=== PATIENT | male | born 1970 | race African-American/Black ===

== ENCOUNTER 2018-08-27 15:16 | Observation (INO) ==
[2018-08-27] MEDS ORDERED: NS 1,000 ML IV ONE (15:29)
--- NOTE | 2018-08-27 15:46 | PROVIDER DOCUMENTATION ---
HPI-General Adult - General Chief Complaint: Stroke-Like Symptoms Stated Complaint: STROKE LIKE SX Time Seen by Provider: 08/27/18 15:27 Source: patient, family Allergies/Adverse Reactions: Patient Allergies Allergy/AdvReac Type Severity Reaction Status Date / Time lisinopril Allergy angioedema Verified 08/27/18 15:24 Home Medications: Home Medication List Medication Instructions Recorded Confirmed Last Taken Type Bupropion HCl [Wellbutrin Xl] 150 mg PO QHS 10/03/17 08/27/18 10/02/17 History Bupropion HCl [Wellbutrin Xl] 300 mg PO QAM 10/03/17 08/27/18 10/03/17 06:30 History Oxcarbazepine 1,200 mg PO QAM 10/03/17 08/27/18 10/03/17 06:00 History Oxcarbazepine 600 mg PO QHS 10/03/17 08/27/18 10/02/17 History Nebivolol HCl [Bystolic] 10 mg PO DAILY 05/15/18 08/27/18 Unknown History Aspirin 325 mg PO DAILY #90 tab 05/16/18 08/27/18 Unknown Rx Atorvastatin Calcium [Lipitor] 20 mg PO 08/27/18 Unknown History Clonidine [Catapres] 0.1 mg PO 4XDAY 08/27/18 08/27/18 Unknown History Losartan Potassium 1 cap PO DAILY 08/27/18 08/27/18 Unknown History Spironolactone 1 tab PO DAILY 08/27/18 08/27/18 Unknown History - History of Present Illness -Gen Adult Nature of Presenting Problems: Mr. Pfeiffer presents complaining of slurred speech, word finding difficulties that started one hour patrol [employer]. He feels like symptoms are improving. He has had same symptoms several times before and reports that they always resolve. He usually takes a clonidine when this happens. He tells that he has seen neurology and cards but has been given no answers. He was seen here in May 2018 for similar symptoms. MRI/MRA NAF. Location of Pain/Injury: reports: none Pain Radiation: reports: no radiation Quality of Pain: reports: none Severity: reports: mild Onset/Duration: reports: 1 hour ago Timing: reports: still present Context/Activities at Onset: reports: none Modifying Factors: improves with: nothing Associated Symptoms: denies: anxiety, chest pain, cough, diarrhea, dizziness, fatigue, headaches, sinus congestion/drainage, shortness of breath, syncope, vomiting, trouble walking Similar Symptoms Previously?: Yes Recently seen or treated by another doctor?: No Review of Systems - Adult - REVIEW OF SYSTEMS - ADULT Constitutional: reports: no symptoms reported Eyes: reports: no symptoms reported. denies: blurred vision Ears, Nose, Mouth & Throat: reports: no symptoms reported Cardiovascular: reports: no symptoms reported. denies: chest pain, syncope Respiratory: reports: no symptoms reported. denies: cough, shortness of breath Gastrointestinal: reports: no symptoms reported. denies: abdominal pain Genitourinary: reports: no symptoms reported Musculoskeletal: reports: no symptoms reported Integumentary: reports: no symptoms reported. denies: rash Neurological: reports: see HPI. denies: dizziness/vertigo, headache/migraines, numbness, paresthesia Psychiatric: reports: no symptoms reported. denies: suicidal thoughts Endocrine: reports: no symptoms reported Hematologic/Lymphatic: reports: no symptoms reported Allergic/Immunologic: reports: no symptoms reported All Other Systems: Reviewed and Negative Past History - Adult - PAST MEDICAL HISTORY-ADULT Review of Records: reports: Old Records Reviewed, Nursing Assessment Review, Medications Reviewed, Social history reviewed & non-contributory. Major Childhood Illnesses: reports: denies history Cardiovascular: reports: HTN Respiratory: reports: denies history Gastrointestinal: reports: denies history Obstetrical/Gynecological: reports: denies history Genitourinary: reports: denies history Musculoskeletal: reports: denies history Neurological: reports: denies history Endocrine/Immune: reports: Diabetes Other Conditions: reports: denies history - PRIOR SURGERIES/PROCEDURES Surgical/Procedure History: reports: reviewed, not pertinent - IMMUNIZATION STATUS Childhood Immunizations: See Nurse Assessment Flu Vaccine: See Nurse Assessment - FAMILY HISTORY Family History: reviewed, not pertinent - SOCIAL HISTORY Smoking: denies Substance Use: none/never Alcohol Use Frequency: never Living Situation: family Physical Exam-General - PHYSICAL EXAM-ADULT Initial Vital Signs Reviewed: Yes - CONSTITUTIONAL General Appearance: appears well, alert, no apparent distress - EYES Eyes: PERRL/EOMI, pink conjunctivae. negative: anisocoria - HEAD, EARS, NOSE, MOUTH & THROAT HENMT: normocephalic/atraumatic, pharynx normal - NECK Neck: supple - RESPIRATORY Respiratory: lungs clear, normal breath sounds - CARDIOVASCULAR Cardiovascular: normal peripheral pulses, regular rate, rhythm - MUSCULOSKELETAL Extremity: normal gait - SKIN Integumentary: normal color, normal turgor, warm/dry - NEUROLOGIC Neurologic: housemaid II-XII nml as tested, grossly normal, no motor/sensory deficits , aphasia (mild; mild dysarthria). negative: abnormal gait - PSYCHIATRIC Psych/Mental Status: normal thought content, oriented x 3 Progress - PLAN OF CARE/RESULTS Progress/Plan/Lab Results: Vital Signs - 8 hr 08/27/18 15:20 Temperature 97.5 F L Pulse Rate 72 Respiratory Rate 18 Blood Pressure 153/88 O2 Sat by Pulse Oximetry 96 Orders Category Date Time Status Cardiac Monitoring DIRECTED Care 08/27/18 15:28 Active Cardiac Monitoring DIRECTED Care 08/27/18 15:30 Active Nursing- Obtain EKG once Care 08/27/18 15:26 Active Oxygen Therapy- ED Nursing DIRECTED Care 08/27/18 15:30 Active Saline Loc NOW Care 08/27/18 15:30 Active CHEST-1 VIEW [RAD] Stat Exams 08/27/18 15:[address] HEAD W/O CONTRAST [CT] Stat Exams 08/27/18 15:25 Ordered ALCOHOL BLOOD Stat Lab 08/27/18 15:29 Uncollected CBC WITH ELECTRONIC DIFF [HEME] Stat Lab 08/27/18 15:30 Uncollected CK PROFILE [SP CHEM] Stat Lab 08/27/18 15:30 Uncollected COMPREHENSIVE METABOLIC PANEL [CHEM] Stat Lab 08/27/18 15:30 Uncollected PROTIME WITH INR [COAG] Stat Lab 08/27/18 15:30 Uncollected PTT [COAG] Stat Lab 08/27/18 15:30 Uncollected TROPONIN T Stat Lab 08/27/18 15:30 Uncollected UA NIMS W/REFLEX CULT PL [URINALYSIS] Stat Lab 08/27/18 15:29 Uncollected URINE DRUG SCREEN PL Stat Lab 08/27/18 15:29 Uncollected 0.9% Sodium Chloride Inj [Ns] 1,000 ml Med 08/27/18 15:29 Active IV 999 mls/hr CP/SOB/Palp >45 yrs of Age Stat Oth 08/27/18 15:29 Ordered EKG [EKG] Stat Ther 08/27/18 15:30 Ordered Result Diagrams: 08/27/18 16:20 08/27/18 16:20 - REASSESSMENT Reassessment #1 Time Reassessed: 16:10 Status: improving (Patient seen and examined by Dr. Paul.) Reassessment #2 Time Reassessed: 16:50 Status: improving (speech improving.) - CONSULTS/PCP/HOSPITALIST Notification #1 *Consult/PCP/Hospitalist*: Dr. Vieyra Time Discussed: 17:32 Consult Disposition: other (CTA head/neck, admit here at [facility], mri tomorrow.) #2 Consult: Dr. White Time Discussed: 17:36 Consult Disposition: Admit Departure - Departure Date of Disposition Decision: 08/27/18 Time of Disposition Decision: 17:32 DIAGNOSIS: Dysarthria, Aphasia, Renal insufficiency Disposition: ADMITTED INPATIENT 09 Certified Medical Emergency: Emergent Condition: Stable Referrals and Follow-Ups: None,PCP [Primary Care Provider] - - Critical Care Note This patient required my direct & personal management of CC.: No Attestation - Physician/ ROGER Attestation Patient care was provided by Advanced Practice Provider:: Yes Advanced Practice Provider:: Jann Gamboa Advanced Practice Provider documentation review:: The Mid-level provider documentation, treatment plan and medical decision making was reviewed by the physician who agrees with all treatment and medical decision making by the MLP. The physician spent face to face time with patient:: Yes Advanced Practice Provider documentation review:: Supervising physician onsite and consulted in the evaluation and care of this patient. The physician did have a face to face encounter with the patient.
--- NOTE | 2018-08-27 15:47 | ED EKG INTERP ---
This chart was entered by Lima Rogers Scribe, acting as scribe for Mary Paul MD. EKG Interpretation - EKG Time of EKG reading by physician:: 15:28 EKG Read and Signed by:: Mary Paul EKG Interpretation (*Must complete 3 of following elements*): Normal Rate: 74 Rhythm: nsr [place]: normal QRS: normal [place] Interval: normal ST Wave: normal Prior EKG Comparison: no prior EKG Attestation - Physician/ ROGER Attestation Patient care was provided by Advanced Practice Provider:: Yes Advanced Practice Provider documentation review:: The Mid-level provider documentation, treatment plan and medical decision making was reviewed by the physician who agrees with all treatment and medical decision making by the MLP. The physician spent face to face time with patient:: No Advanced Practice Provider documentation review:: Supervising physician onsite and consulted in the evaluation and care of this patient. The physician did not have a face to face encounter with the patient. This chart was documented by the indicated scribe, (Lima Rogers Scribe) and accurately reflects the services I performed and decisions made by me, Mary Paul MD, as attested by the provider's signature.
--- NOTE | 2018-08-27 16:08 | EKG Report ---
Test Performed on : 08/27/2018 3:28:22 PM Test Reason : ams Blood Pressure : / mmHG Vent. Rate : 074 BPM Atrial Rate : 074 BPM P-R Int : 128 ms QRS Dur : 096 ms QT Int : 402 ms P-R-T Axes : 054 075 033 degrees QTc Int : 446 ms Normal sinus rhythm. Normal ECG When compared with ECG of 03-OCT-2017 12:51, No significant change was found Unconfirmed Result
--- NOTE | 2018-08-27 16:26 | Diag Imaging Result Doc PS360 ---
EXAM: CT HEAD W/O CONTRAST - 08/27/2018 HISTORY: Stroke Symptoms TECHNIQUE: CT head without contrast COMPARISON: 05/15/2018 FINDINGS: There is no evidence of intracranial hemorrhage, mass effect, midline shift, or hydrocephalus. There is stable slight ventricular asymmetry compatible normal variation. There is no evidence of infarct, although acute infarcts may not be immediately visible. There is no evidence of skull fracture. Visualized portions of paranasal sinuses and mastoid air cells appear clear. IMPRESSION: No visible acute intracranial abnormality. No hemorrhage or mass effect. This exam was performed using automated exposure control, adjustment of mA or kV according to patient size, and/or use of iterative reconstruction technique. Electronically signed by Rajinder Wayne 08/27/2018 4:24 PM
--- NOTE | 2018-08-27 16:29 | Diag Imaging Result Doc PS360 ---
EXAM: CHEST-1 VIEW - 08/27/2018 HISTORY: ams TECHNIQUE: One view chest COMPARISON: 10/03/2017 FINDINGS: Heart size is normal. The lungs appear clear. There is no pleural effusion or pneumothorax identified. IMPRESSION: No evidence of acute disease. Electronically signed by Rajinder Wayne 08/27/2018 4:26 PM
[2018-08-27 16:38] LABS: BASO# 0.01 X1000 (0.0-0.2); BASO% 0.2 % (0.0-0.8); EOS# 0.16 X1000 (0.0-0.7); EOS% 2.8 % (0.0-10.0); HEMATOCRIT 42.2 % (42.0-52.0); HEMOGLOBIN 14.6 g/dL (14.0-18.0); IMM GRAN# 0.02 X1000 (0.0-0.04); IMM GRAN% 0.4 % (0.0-0.5); LYMPH# 1.82 X1000 (1.2-3.4); LYMPH% 32.3 % (20.5-51.1); MCH 32.4 PG (27-31); MCHC 34.6 g/dL (33-37); MCV 93.8 FL (81-99); MONO# 0.42 X1000 (0.11-0.59); MONO% 7.4 % (1.7-9.3); MPV 10.3 FL (7.4-10.4); NEUT# 3.21 X1000 (1.4-6.5); NEUT% 56.9 % (42.2-75.2); PLT 286 X1000 (130-400); RDW 12.6 % (11.5-14.5); WBC 5.64 X1000 (4.8-10.8)
[2018-08-27 16:54] LABS: INR 0.99; PROTIME 13.6 Seconds (11.0-16.0); PTT 27.8 Seconds (22.3-41.8)
[2018-08-27 17:09] LABS: ALBUMIN 4.3 g/dL (3.5-5.0); CALCIUM 9.4 mg/dL (8.8-10.2); CREATININE 1.4 mg/dL (0.7-1.2); POTASSIUM 4.4 mmol/L (3.5-5.1); TOTAL BILIRUBIN 0.3 mg/dL (0.20-1.00); TOTAL PROTEIN 7.3 g/dL (6.3-8.3)
[2018-08-27] MEDS ORDERED: ASPIRIN PO ONE (17:26)
[2018-08-27] MEDS ORDERED: ZOFRAN IV PRN (17:37)
[2018-08-27] MEDS ORDERED: TYLENOL PO PRN (17:37)
[2018-08-27] MEDS: NS 1,000 ML IV SCH (17:51)
[2018-08-27 17:54] LABS: CK INDEX 0.6 (0.0-2.5); CK-MB 4.09 ng/mL (0.0-5.0)
[2018-08-27 17:56] LABS: BILIRUBIN URINE NEGATIVE (NEGATIVE); BLOOD URINE NEGATIVE (NEGATIVE); CLARITY CLEAR (CLEAR); COLOR YELLOW; GLUCOSE URINE NEGATIVE (NEGATIVE); KETONE URINE NEGATIVE (NEGATIVE); LEUKOCYTES URINE NEGATIVE (NEGATIVE); NITRITE URINE NEGATIVE (NEGATIVE); PH URINE 6.5; PROTEIN URINE TRACE mg/dL (NEGATIVE); UROBILINOGEN URINE NORMAL
[2018-08-27 18:21] LABS: URINE BACTERIA 1+ /HFP; URINE CAST NONE SEEN /LPF; URINE CRYSTAL URIC ACID PRESENT /HPF; URINE EPITHELIAL CELLS <10 /HPF (<10); URINE WBC <10 /HPF (<10); URINE YEAST NONE SEEN /HPF
[2018-08-27 18:22] LABS: URINE SOURCE CLEAN CATCH
[2018-08-27 18:35] LABS: UR AMPHETAMINES QUAL NONE DETECTED (NONE DETECT); UR BARBITUATES QUAL NONE DETECTED (NONE DETECT); UR BENZODIAZEPIN QUAL NONE DETECTED (NONE DETECT); UR COCAINE QUAL NONE DETECTED (NONE DETECT)
[2018-08-27 18:36] LABS: UR CANNABINOIDS QUAL NONE DETECTED (NONE DETECT); UR METHADONE QUAL NONE DETECTED (NONE DETECT); UR METHAMPHETAMINE QUAL NONE DETECTED (NONE DETECT); UR OPIATES QUAL NONE DETECTED (NONE DETECT); UR OXYCODONE QUAL NONE DETECTED (NONE DETECT); UR PCP QUAL NONE DETECTED (NONE DETECT); UR PROPOXYPHENE QUAL NONE DETECTED (NONE DETECT); UR TCA QUAL NONE DETECTED (NONE DETECT)
--- NOTE | 2018-08-27 19:23 | Diag Imaging Result Doc PS360 ---
CT ANGIOGRAM HEAD/NECK - 08/27/2018 INDICATION: aphasia/dysarthria TECHNIQUE: Axial CT images were obtained after administering intravenous contrast. Three-dimensional angiographic images were generated. COMPARISON: Head CT from 08/27/2018 at 4:15 PM FINDINGS: Normal aortic arch and great vessels. The carotid artery systems are patent bilaterally. The vertebral arteries are patent bilaterally. All the intracranial arteries are patent. No significant stenosis or aneurysm. No calcified vascular disease. Soft tissues are all clear. IMPRESSION: Negative exam. This exam was performed using automated exposure control, adjustment of mA or kV according to patient size, and/or use of iterative reconstruction technique Electronically signed by Johnny Leroy 08/27/2018 7:20 PM
[2018-08-27] MEDS ORDERED: CATAPRES PO PRN (23:44)
[2018-08-28] MEDS: NS 1,000 ML IV SCH ×4 (02:53→23:19)
--- NOTE | 2018-08-28 08:05 | HISTORY AND PHYSICAL ---
CHIEF COMPLAINT: Dysarthria. HISTORY OF PRESENT ILLNESS: This is a 47-year-old white male with history of hypertension, previous TIAs although no clear stroke. He reports episodes where he has had dysarthria, unable to speak, and weakness. Most of his care is obtained in [place], however, he works in the [place] area and he has had issues with that in the past. Work up in the emergency room was really unremarkable and his speech has improved. He is actually due to see Dr. Vieyra, a neurologist in [place]. This occurred about an hour prior to admission, which was around 3:30 but his symptoms have improved and by the time I saw him, around 1900 hours, it had completely resolved. He states he gets symptoms when his blood pressure get elevated. He is also concerned because his and therapist have said he has trouble with memory recall. Again, he has had about three episodes of this in the past. He was admitted in May for similar process and workup then was negative. He will be placed in observation for possible TIA. PAST MEDICAL HISTORY: 1. Hypertension. 2. TIAs. 3. Bipolar 2. 4. PTSD. PAST SURGICAL HISTORY: He has had multiple arthroscopic procedures, left knee surgery x2, right TKA, bilateral shoulder arthroscopies, left pectoralis repair, right carpal tunnel release, tonsillectomy, right ankle surgery, right toe surgery. SOCIAL HISTORY: No tobacco or ethanol. He works in [place]. FAMILY HISTORY: His father had a stroke in his late 50s, 59. Also, CAD. ALLERGIES: Lisinopril. REVIEW OF SYSTEMS: Otherwise negative times a 10-point review of systems. MEDICATIONS: 1. Lipitor 20. 2. Wellbutrin 150. 3. Oxcarbazepine 600. 4. Clonidine 0.124. 5. Wellbutrin 300 daily. 6. Losartan 100 daily. 7. Bystolic 10 daily. 8. Oxcarbazepine 1200 in the morning. 9. Spironolactone 50 daily. 10.Aspirin 325 daily. PHYSICAL EXAMINATION: VITAL SIGNS: Blood pressure 151/77, heart rate of 72, respiratory rate 18, temperature was 98.2. 97% on room air. GENERAL: A well-developed male in no acute distress. HEENT: Head is normocephalic and atraumatic. Eyes, the pupils are equal, round , reactive to light. Extraocular movements are intact. The sclerae were anicteric. Ears, nose and throat exam, he had moist mucous membranes. NECK: Supple. CARDIOVASCULAR: Regular rate. Regular rhythm. PULMONARY: Bilateral breath sounds. Clear to auscultation. GASTROINTESTINAL: Soft, nontender, and nondistended. Bowel sounds are positive. NEUROLOGICAL: Cranial nerves II through XII are intact. MUSCULOSKELETAL: 5/5 in all four extremities. SKIN: Clean, dry and intact. No rashes noted. LABORATORY DATA: His white count is 5. Hemoglobin and hematocrit 14 and 42. Platelets 286,000. Coags normal. Basic was normal. The creatinine was actually 1.4. Urine was clear. Urine drug screen was normal. Head CT was negative. ASSESSMENT AND PLAN: This is a 47-year-old male with history of transient ischemic attacks (TIAs), presenting with stroke-like symptoms which have since resolved, consistent with transient ischemic attack. 1. Transient ischemic attack. We will continue with transient ischemic attack workup. He is already on high-dose aspirin. We will continue that for now. Continue gentle hydration and neuro checks. Will pursue magnetic resonance imaging (MRI) in the morning. 2. Hypertension, which appears to be improved. We will continue his regular medications. If there is evidence of stroke we will need to consider permissive hypertension and follow. Disposition pending his clinical status. 3. Bipolar and post-traumatic stress disorder (PTSD). We will continue his regular medications. This is a service admission. Most of his PCPs are in the [place] area. We will continue to monitor closely. cc: Jasmeet White MD [facility]
[2018-08-28 08:26] LABS: BASO# 0.01 X1000 (0.0-0.2); BASO% 0.2 % (0.0-0.8); EOS% 4.6 % (0.0-10.0); HEMATOCRIT 41.6 % (42.0-52.0); HEMOGLOBIN 13.9 g/dL (14.0-18.0); IMM GRAN# 0.01 X1000 (0.0-0.04); IMM GRAN% 0.2 % (0.0-0.5); LYMPH# 1.41 X1000 (1.2-3.4); LYMPH% 32.3 % (20.5-51.1); MCH 31.8 PG (27-31); MCHC 33.4 g/dL (33-37); MCV 95.2 FL (81-99); MONO# 0.37 X1000 (0.11-0.59); MONO% 8.5 % (1.7-9.3); NEUT# 2.36 X1000 (1.4-6.5); NEUT% 54.2 % (42.2-75.2); PLT 260 X1000 (130-400); RBC 4.37 XMIL (4.7-6.1); RDW 12.8 % (11.5-14.5); WBC 4.36 X1000 (4.8-10.8)
[2018-08-28 08:36] LABS: AGAP 12; BUN 17 mg/dL (8-22); CHLORIDE 106 mmol/L (98-107); COSMO 288; CREATININE 1.1 mg/dL (0.7-1.2); ESTIMATED GFR > 60; GLUCOSE 95 mg/dL (70-104); POTASSIUM 4.3 mmol/L (3.5-5.1); SODIUM 144 mmol/L (136-145); TCO2 26 mmol/L (25-35)
[2018-08-28] MEDS: WELLBUTRIN XL PO SCH (09:57)
[2018-08-28] MEDS: ASPIRIN PO SCH (09:57)
[2018-08-28] MEDS: ALDACTONE PO SCH (09:57)
[2018-08-28] MEDS: COZAAR PO SCH (09:58)
[2018-08-28] MEDS: TRILEPTAL PO SCH (09:58)
[2018-08-28] MEDS: BYSTOLIC PO SCH (09:58)
--- NOTE | 2018-08-28 13:12 | Extremity Venous Study ---
EXAM: Carotid Ultrasound HISTORY: tia TECHNIQUE: Carotid Doppler ultrasound COMPARISON: None. FINDINGS: Right: No occlusion or stenosis in the common carotid artery. The peak systolic velocity in the internal carotid artery is 93 cm/s. No plaque. No occlusion or stenosis. There is antegrade flow in vertebral artery. The ICA/CCA ratio 0.61. Left: There is normal flow in the common carotid artery. No occlusion or stenosis. The peak systolic velocity in the internal carotid arteries 101 cm/s. No plaque. No occlusion or stenosis. There is antegrade flow in the vertebral artery. The ICA/CCA ratio 0.62. IMPRESSION: No occlusion or stenosis within either common carotid artery or within either internal carotid artery. Electronically signed by Edward Amato 08/28/2018 1:09 PM
--- NOTE | 2018-08-28 14:22 | Diag Imaging Result Doc PS360 ---
EXAM: MRI BRAIN W/WO CONTRAST HISTORY: cva TECHNIQUE: MRI brain with and without. COMPARISON: 05/16/2018 FINDINGS: Axial, sagittal, and coronal images obtained in multiple sequences. These are followed by post contrasted axial and coronal images. No recent infarct. No microvascular ischemic changes. No mass or midline shift. No hydrocephalus. No epidural or subdural fluid collection. Normal orbits. No sinus opacification. The cerebellum is low lying with questionable slight extension through the foramen magnum. Prominent enhancement in the region of the pineal gland on the post contrasted images measuring 7 x 9 x 15 mm. This is not identified on the precontrasted T1, T2, or FLAIR weighted images. 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
[2018-08-28] MEDS ORDERED: TRILEPTAL PO SCH (21:00)
[2018-08-28] MEDS ORDERED: LIPITOR PO SCH (21:00)
[2018-08-28] MEDS ORDERED: WELLBUTRIN XL PO SCH (21:00)
--- NOTE | 2018-08-28 23:58 | ECHO REPORT ---
ORDER DATE: 08/28/2018 MEASUREMENTS: Left ventricular end-diastolic diameter 5.1, end-systolic diameter 2.8, septal thickness 1.1, posterior wall thickness 1.0, aortic root 3.4, left atrium 4.0. SUMMARY: 1. Adequate quality study. 2. Aortic valve is without evidence of structural abnormality and opens adequately on 2- dimensional images. Peak gradient across the aortic valve is less than 10 mmHg. Mitral, tricuspid, and pulmonic valves are without evidence of structural abnormality with trace mitral regurgitation and trace tricuspid regurgitation. The estimated systolic PA pressure by Doppler is 40 mmHg. The aortic root is normal in size. 3. Normal left ventricular dimensions demonstrated. Estimated left ventricular ejection fraction appears to be at least 60%. No regional wall motion abnormalities evident. Left atrium is borderline enlarged. Right atrium and right ventricle are normal in size with normal right ventricular systolic function. 4. No pericardial effusion. 5. Appearance of inferior vena cava suggests normal central venous pressure. CONCLUSIONS: 1. No significant valvular abnormality evident. 2. Normal left ventricular systolic function without regional wall motion abnormality evident. 3. Borderline left atrial enlargement. cc: MD Jasmeet Connors MD
--- NOTE | 2018-08-29 04:24 | PROGRESS NOTE ---
DATE: 08/28/2018 SUBJECTIVE: This patient is not complaining of chest pain and shortness of breath at this moment. He has been hospitalized this patient before for the same issue. Apparently he started having some stroke-like symptoms mostly with his slurred speech, but then once the blood pressure normalized apparently all the symptoms resolved. His workup in the emergency room was really unremarkable and his speech is normal today. I saw this patient back in May for a similar process and the workup was negative. We repeated the brain MRI here that showed a prominent pineal gland, and also it showed a low-lying cerebellum which may represent a Chiari [address] of the head was negative for any acute problem, as well as the neck. Carotid Doppler ultrasound showed no occlusion or stenosis either common carotic artery or within either internal carotid artery. He has been evaluated by the Neurology Department as an outpatient with Dr. Vieyra, and as per the patient Dr. Vieyra told him that everything could be related to stress. The patient says that every time he has high blood pressure also he has those symptoms. Today all the symptoms are much better. Probably this patient will be discharged tomorrow. His creatinine is getting better as well. OBJECTIVE: Vital Signs: Temperature 98.3 degrees, pulse 59, respiratory rate 18, blood pressure 125/82, oxygen saturation 98% on room air. HEENT: Head is normocephalic. No trauma. PERRLA. Neck: Supple. No JVD. No masses. Central trachea. Chest: Clear to auscultation. No wheezing. No rales. Abdomen: Soft, nontender, and nondistended. No hepatosplenomegaly. Extremities: No edema. No clubbing. No cyanosis. Neurological: The patient is alert and oriented x3. No focal deficits. LABORATORY: WBC 4.3, hemoglobin 13.9, hematocrit 41.6, platelets 260,000. Sodium 144, potassium 4.3, chloride 106, bicarbonate 26, BUN 17, creatinine 1.1, glucose 95, calcium 9. ASSESSMENT AND PLAN: 1. The patient has been admitted to rule out a stroke and/or possible transient ischemic attack. Continue with the same management for now. I do not have any positive results that can corroborate any kind of stroke. He is doing better, we will continue to monitor 1 more night and then I will discharge this patient in the morning. 2. Hypertension, improved. Blood pressure is normal now. 3. Bipolar and posttraumatic stress disorder. Probably this patient also suffers some kind of anxiety process. As per the patient every time he has high blood pressure he became more anxious and he started having symptoms, especially slurred speech. I do believe tomorrow if he does not have any new symptoms I can discharge this patient home with a strict followup by his neurologist at [facility]. cc: Benny Hall MD
[2018-08-29 06:04] VITALS: BP 127/60
[2018-08-29] MEDS: NS 1,000 ML IV SCH (07:49)
[2018-08-29] MEDS: COZAAR PO SCH (09:20)
[2018-08-29] MEDS: BYSTOLIC PO SCH (09:20)
[2018-08-29] MEDS: ASPIRIN PO SCH (09:20)
[2018-08-29] MEDS: ALDACTONE PO SCH (09:20)
[2018-08-29] MEDS: WELLBUTRIN XL PO SCH (09:21)
[2018-08-29] MEDS: TRILEPTAL PO SCH (09:25)
--- NOTE | 2018-08-30 08:17 | DISCHARGE SUMMARY ---
ADMISSION DATE: 08/27/2018 DISCHARGE DATE: 08/29/2018 PRIMARY CARE PHYSICIAN: Listed as none. ADMISSION DIAGNOSES: 1. Transient ischemic attack. 2. Hypertension. 3. Bipolar and PTSD. DISCHARGE DIAGNOSES: 1. Transient ischemic attack. 2. Hypertension. 3. Bipolar with PTSD. SUMMARY OF FINDINGS: This is a 47-year-old male who presented with complaints of dysarthria, unable to speak and weakness. Most of his care is obtained at [place]. However, he works in the [place] area. He came to the emergency room. By the time he arrived, his speech was improved. He does follow Dr. Vieyra, a neurologist in [place]. This occurred approximately one hour prior to the admission, which was around 3:30. By the time he was seen by our attending that night his symptoms had resolved. We did admit. We obtained a head CT that showed no visible acute intracranial abnormality. No hemorrhage or mass effect. We did a head and neck CT that was negative. We did a brain MRI that showed a prominent pineal gland, low-lying cerebellum which may represent a Chiari 1 malformation. Carotid Doppler that showed no occlusion or stenosis within either common carotid artery or internal carotid artery. We did an echocardiogram that showed no significant valvular abnormality identified with an ejection fraction of 60%. It is now felt that he can safely be discharged home today. He is to follow up with his neurologist next week, and call the office for an appointment. DISCHARGE MEDICATIONS: 1. Aspirin 325 mg p.o. daily. 2. Atorvastatin 20 mg p.o. at bedtime. 3. Bupropion 150 mg p.o. at bedtime and 300 mg p.o. every morning. 4. Clonidine 0.1 mg p.o. q.4 hours p.r.n. 5. Losartan 100 mg p.o. daily. 6. Bystolic 10 mg p.o. daily. 7. Oxcarbazepine 600 mg p.o. at bedtime and 1200 mg p.o. every morning. 8. Spironolactone 50 mg p.o. daily. TIME SPENT: 33 minute discharge. Dictated by DIONI Rubio for Benny Hall MD cc: DIONI Rubio MD
== END 2018-08-29 12:05 | disposition home or self-care (01) ==
LOC: P.ED 15:16 → P.MEDSURG 15:16 → SUATTDRO 15:17
PROVIDERS: ATTEND Internal Medicine
CPT/HCPCS: 70450; 70496; 70498; 70553; 71010; 71045; 80048; 80053; 80104; 80301; 80305; 80307; 80320; 81001; 82055; 82550; 82553; 82948; 84484; 85025; 85610; 85730; 93005; 93306; 93880; 94761; 96360; 96361; 99285; A9270; A9579; G0431; G0434; G0477; G0480; G6040; J7030; Q9967; XXXXX